=== PATIENT | male | born 1960 | race Caucasian/White ===

== ENCOUNTER 2016-05-23 16:03 | Emergency (ER) | payer OTHER ==
[~2016-05-23] VITALS: Ht 185.4 cm; Wt 86.2 kg
[2016-05-23] MEDS ORDERED: MULT-186 PO (16:19)
[2016-05-23] MEDS ORDERED: INSU100C5 SQ (16:19)
[2016-05-23] MEDS ORDERED: ASPI-484 PO (16:19)
[2016-05-23] MEDS ORDERED: CITA20TA9 PO (16:19)
[2016-05-23] MEDS ORDERED: INSU100V13 SQ (16:19)
[2016-05-23] MEDS ORDERED: APIX5TAB PO (16:19)
[2016-05-23] MEDS ORDERED: LEVO150T6 PO (16:19)
[2016-05-23] MEDS ORDERED: TORADOL IV STA (16:45)
[2016-05-23] MEDS ORDERED: ZOFRAN IV STA (16:45)
--- NOTE | 2016-05-23 16:50 | ER.PDOC ---
General Chief Complaint: Abdomen Pain Stated Complaint: ABDOMEN PAIN Time seen by MD: 16:47 Source: patient Exam Limitations: no limitations History of Present Illness Initial Comments Abdominal pain since this morning. Severity/Quality: moderate, cramping Radiation: no radiation Associated Symptoms: nausea/vomiting Exacerbated by: nothing Relieved By: nothing Allergies: Coded Allergies: prochlorperazine (Verified Allergy, Severe, Rash, 05/23/16) promethazine (Verified Allergy, Severe, Rash, 05/23/16) Home Meds Reported Medications Multivitamin (Multi-Day Vitamins)1 Each Tablet1 Tab PO DAILY #30 TAB 05/23/16 Aspirin (Aspir 81)81 Mg Tablet.dr1 Tab PO DAILY #30 TAB Ref 5 05/23/16 Insulin Detemir (Levemir)100 Unit/1 Ml Vial40 Unit SQ HS 05/23/16 Insulin Aspart (Novolog)100 Unit/1 Ml [id number] Unit SQ PRN PRN HYPERGLYCEMIA 05/23/16 Apixaban (Eliquis)5 Mg Tablet5 Mg PO BID 05/23/16 Citalopram Hydrobromide (Celexa)20 Mg Tablet1 Tab PO DAILY #90 TAB Ref 3 05/23/16 Levothyroxine Sodium 150 Mcg Tablet1 Tab PO DAILY #30 TAB Ref 5 05/23/16 Vital Signs First Vital Signs Date Time Temp Pulse Resp B/P Pulse Ox O2 Delivery O2 Flow Rate FiO2 05/23/16 16:12 98.2 90 18 98 05/23/16 16:15 126/80 Last Vital Signs Date Time Temp Pulse Resp B/P Pulse Ox O2 Delivery O2 Flow Rate FiO2 05/23/16 16:15 98.2 90 18 126/80 98 Past Medical History Medical History: coronary artery disease, diabetes, thyroid disease Surgical History: cardiac cath, stent Social History Smoking: cigarettes, less than 1 pack/day Alcohol Use: none Drug Use: none Constitutional: no symptoms reported Respiratory: no symptoms reported Cardiovascular: no symptoms reported Gastrointestinal: see HPI Genitourinary: no symptoms reported Musculoskeletal: no symptoms reported Skin: no symptoms reported All Other Systems: Reviewed and Negative Physical Exam General Appearance: No Apparent Distress, WD/WN Neck: Non-Tender, Full Range of Motion, Supple, Normal Inspection Respiratory: chest non-tender, lungs clear, normal breath sounds, no respiratory distress, no accessory muscle use Cardiovascular: Normal Peripheral Pulses, Regular Rate, Rhythm, No Edema, No Gallop, No JVD, No Murmur Gastrointestinal: Normal Bowel Sounds, No Organomegaly, No Pulsatile Mass, Tenderness (mid abdomen) Back: Normal Inspection, No CVA Tenderness, No Vertebral Tenderness Extremities: Normal Range of Motion, Non-Tender, Normal Inspection, No Pedal Edema, No Calf Tenderness, Normal Capillary Refill, Pelvis Stable 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 He understands that his hemoglobin is low and liver enzymes elevated. He may also may be having left sided hydronephrosis. Will need to follow u[p with his PCP for further evaluation. EKG/XRAY/CT/US EKG Comments: Normal CT Comments: Significant retained fecal material on CT abdomen/pelvis Course Blood Pressure Systolic: 126 Blood Pressure Diastolic: 80 Blood Pressure Mean: 95 Departure Time of Disposition: 18:35 Disposition: 01 HOME, SELF-CARE Impression: Primary Impression: Nausea & vomiting Additional Impression: Constipation Condition: Stable Referrals: PCP,UNKNOWN (PCP) PRIMARY CARE PROVIDER Additional Instructions: Magnesium Citrate Zofran Start feeding with clear liquids and advance diet as tolerated F/U with your PCP in 2-3 days Problem Qualifiers Primary Impression: Nausea & vomiting Vomiting type: unspecified Vomiting Intractability: intractable Qualified Code: R11.2 - Nausea with vomiting, unspecified Additional Impression: Constipation Constipation type: unspecified constipation type Qualified Code: K59.00 - Constipation, unspecified CHARISSA SARMIENTO MD May 23, 2016 16:50
[2016-05-23] MEDS ORDERED: MISC MC ONE (17:00)
[2016-05-23] MEDS ORDERED: ZOFRAN ONE (17:00)
[2016-05-23] MEDS ORDERED: TORADOL ONE (17:00)
[2016-05-23 17:01] LABS: BASOPHIL # 0.1 10^3/uL (0.0-0.1); BASOPHIL % 1.9 % (0.0-0.2); EOSINOPHIL # 0.2 10^3/uL (0.0-0.2); HEMATOCRIT 30.6 % (37.0-53.0); HEMOGLOBIN 9.7 g/dL (13.9-16.3); LYMPHOCYTES # 2.4 10^3/uL (1.0-4.8); LYMPHOCYTES % 31.7 % (24.0-44.0); MEAN CELL HGB 25.7 pg (26-34); MEAN CELL HGB CONCENTRATION 31.7 g/dL (33-37); MEAN CORP VOLUME 81.2 fL (78-100); MEAN PLATELET VOLUME 8.6 fL (7.8-11.0); MONOCYTES # 1.2 10^3/uL (0.3-0.8); MONOCYTES % 16.1 % (5.0-12.0); NEUTROPHIL # 3.6 10^3/uL (1.8-7.7); NEUTROPHILS % 47.9 % (41.0-85.0); PLATELET COUNT 534 10^3/uL (150-400); RED BLOOD CELL 3.77 10^6/uL (4.50-5.90); RED CELL DISTRIBUTION WIDTH 15.6 % (11.5-14.5); WHITE BLOOD CELL 7.5 10^3/uL (4.5-11.0)
[2016-05-23] MEDS ORDERED: NS 1000ML 1,000 ML ONE (17:01)
--- NOTE | 2016-05-23 17:05 | NUR ---
IVF NS BOLUS STARTED WIDE OPEN TO GRAVITY
[2016-05-23 17:18] LABS: BAND NEUTROPHILS 5 % (2-6); BASOPHIL 0 % (0-2); EOSINOPHIL 2 % (1-4); LYMPHOCYTE 30 % (25-36); MONOCYTE 6 % (3-9); SEGMENTED NEUTROPHILS 57 % (31-76); TOTAL CELLS COUNTED 100 #CELLS
[2016-05-23 17:19] LABS: ALANINE AMINOTRANSFERASE 87 U/L (12-78); ALBUMIN 2.9 g/dL (3.4-5.0); ALKALINE PHOSPHATASE 259 U/L (50-136); ANISOCYTOSIS 2+ (NEGATIVE); ASPARTATE AMINO TRANSFERASE 86 U/L (0-35); CALCIUM 8.9 mg/dL (8.4-10.5); CARBON DIOXIDE 25.7 mmol/L (20.0-32); CREATININE SERUM 0.79 mg/dL (0.59-1.40); GLUCOSE 214 mg/dL (70-110); HYPOCHROMIA 2+ (NEGATIVE); LIPASE 220 U/L (114-286); POLYCHROMASIA 1+ (NEGATIVE)
[2016-05-23 17:23] LABS: INR 0.9; PARTIAL THROMBOPLASTIN TIME 22.8 SEC (24.67-30.72); PROTHROMBIN PROTIME 9.5 SEC (9.8-11.9)
[2016-05-23] MEDS ORDERED: LIDOCAINE VISCOUS ONE (17:24)
[2016-05-23] MEDS ORDERED: DONNATAL ELIXIR ONE (17:25)
[2016-05-23] MEDS ORDERED: MYLANTA ONE (17:25)
[2016-05-23 17:27] LABS: BILIRUBIN,URINE NEGATIVE (NEGATIVE); PH,URINE 6.5 (5.0-6.0); UROBILINOGEN,URINE NORMAL (NEGATIVE)
[2016-05-23] MEDS ORDERED: BENTYL IM ONE (17:28)
[2016-05-23 17:29] LABS: APPEARANCE,URINE CLEAR (CLEAR); UA COLOR YELLOW (YELLOW)
[2016-05-23] MEDS ORDERED: MYLANTA PO STA (17:32)
[2016-05-23] MEDS ORDERED: DONNATAL ELIXIR PO STA (17:32)
[2016-05-23] MEDS ORDERED: LIDOCAINE VISCOUS MM STA (17:32)
[2016-05-23] MEDS ORDERED: BENTYL IM STA (17:32)
--- NOTE | 2016-05-23 17:48 | NUR ---
IVF NS BOLUS COMPLETED
--- NOTE | 2016-05-23 18:17 | DIREP ---
PROCEDURE:CT ABDOMEN/PELVIS W/ CONTRAST COMPARISON:[facility] [place], CT, CT ABD/PELVIS W/O, 10/21/2015, 04:44 PM. [facility] [place], CT, CT ABD/PELVIS W/ CONTRAST, 11/30/2015, 12:35 PM. INDICATIONS:Abdominal pain TECHNIQUE:Axial images were created through the abdomen and pelvis with non-ionic intravenous contrast material. Oral contrast was administered. Sagittal and coronal reconstructions were performed from source images.The study was reviewed on abdominal, lung, liver and bone windows. FINDINGS: LUNG BASES:Normal. No visible pulmonary or pleural disease. Small hiatal hernia noted. LIVER:Normal. No significant liver lesions are identified. BILIARY:Status post cholecystectomy. PANCREAS:Normal. No lesion, fluid collection, ductal dilatation, or atrophy. SPLEEN:Normal. No enlargement or focal lesion. ADRENALS:Normal. No mass or enlargement. URINARY TRACT:Normal. No focal lesions or hydronephrosis. The left renal pelvis is extrarenal. Recommend sonogram to rule out mild hydronephrosis on the left side. No radiopaque stone is identified in the left UVJ AORTA/VASCULAR:Normal. No aneurysm. RETROPERITONEUM:Normal. No mass or adenopathy. BOWEL/MESENTERY:Normal. There is no intestinal obstruction, free fluid, free air or mesenteric inflammatory changes. Oral contrast as well as fecal material in the colon. No pericecal inflammatory changes, free air or free fluid is seen. ABDOMINAL WALL:Normal. No mass or hernia. PELVIC ORGANS:Normal. No visible mass. Pelvic organs appropriate for patient age. BONES:Normal for age. No bony lesion or acute fracture. OTHER:Negative. CONCLUSION:Status post cholecystectomy. No pericecal inflammatory changes, free air or free fluid is seen. Significant retained fecal material. Prominent left renal pelvis, question extrarenal pelvis versus mild left-sided hydronephrosis. A followup sonogram is recommended. Dictated by: Fly Munoz MD on 05/23/2016 at 06:12 PM
[2016-05-23 18:44] VITALS: BP 125/77
== END 2016-05-23 18:45 | disposition home or self-care (01) ==
LOC: ER 16:03
DX: K59.00 Constipation, unspecified (principal); R11.2 Nausea with vomiting, unspecified; E11.9 Type 2 diabetes mellitus without complications; E07.9 Disorder of thyroid, unspecified; I25.10 Atherosclerotic heart disease of native coronary artery without angina pectoris; Z79.01 Long term (current) use of anticoagulants; Z79.4 Long term (current) use of insulin; Z79.82 Long term (current) use of aspirin; Z88.8 Allergy status to other drugs, medicaments and biological substances
CPT/HCPCS: 36415; 74177; 80053; 81002; 83690; 85007; 85025; 85610; 85730; 93005; 96372; 96374; 96375; 99285; J1885; J2405; J3490 ×2; J7030; Q9967; J0500